=== PATIENT | female | born 1970 | race American Indian/Alaskan Native ===

== ENCOUNTER 2017-08-28 14:35 | Outpatient (CLI) | payer MEDICAID ==
--- NOTE | 2017-08-28 16:12 | Mammography Report ---
LEFT DIGITAL DIAGNOSTIC MAMMOGRAM: 08/28/17 14:35:00 CLINICAL: For clip placement immediately status post ultrasound biopsy. COMPARISON:Recent [facility] mammogram. FINDINGS: A biopsy clip is now identified at 11 o'clock and correlates with the previously described lesion.A distinct mass is not identified at the clip. IMPRESSION: Concordant clip placement status post ultrasound biopsy. BI-RADS CATEGORY: 4--Suspicious Pathology pending.
--- NOTE | 2017-08-28 16:22 | Ultrasound Report ---
VACUUM ASSISTED ULTRASOUND GUIDED NEEDLE CORE BIOPSY WITH CLIP PLACEMENT LEFT BREAST: 08/28/17 14:35:00 CLINICAL: Mass at 11 o'clock 5 cm from the nipple. COMPARISON :Recent [facility] mammogram FINDINGS: The procedure was explained to the patient and informed consent was obtained. Ultrasound demonstrated the previously described mass at 11 o'clock. The skin was prepped with Betadine and anesthetized with 1% lidocaine. Vacuum-assisted needle core biopsy was performed through a small dermatotomy using ultrasound guidance, 2% lidocaine with epinephrine for deep anesthesia and a 10-gauge Mammotome biopsy probe. Multiple cores were obtained and placed in formalin. A localizer clip was deployed within the mass. Hemostasis was achieved with minimal pressure and a sterile dressing was applied. The patient tolerated the procedure well and there were no apparent complications. A two view mammogram demonstrated concordant clip placement. The patient left the department in good condition and was given instructions for wound care and follow up. IMPRESSION: Uncomplicated vacuum-assisted ultrasound core biopsy and clip placement left breast.
== END 2017-08-28 14:36 | disposition home or self-care (01) ==
LOC: SPVWC 14:35
PROVIDERS: ATTEND Obstetrics & Gynecology Gynecology
DX: D24.2 Benign neoplasm of left breast (principal); R92.0 Mammographic microcalcification found on diagnostic imaging of breast; I10 Essential (primary) hypertension
CPT/HCPCS: 88305

== ENCOUNTER 2019-01-13 07:42 | Day surgery (SDC) | payer MEDICAID, OTHER ==
[2019-01-13] MEDS ORDERED: ECOTRIN PO NR (08:06)
[2019-01-13 08:32] LABS: Basophils # (Auto) 0.1 K/mm3 (0.0-0.1); Basophils % (Auto) 0.9 % (0.0-1.8); Eosinophils # (Auto) 0.1 K/mm3 (0.0-0.4); Eosinophils % (Auto) 1.7 % (0.0-4.3); Hematocrit 39.9 % (30.3-42.9); Hemoglobin 13.3 gm/dl (10.1-14.3); Lymphocytes # (Auto) 3.8 K/mm3 (1.2-5.4); Lymphocytes % (Auto) 44.5 % (13.4-35.0); Mean Corpuscular HGB Conc 33 % (30-34); Mean Corpuscular Volume 89 fl (79-97); Monocytes # (Auto) 0.5 K/mm3 (0.0-0.8); Monocytes % (Auto) 5.5 % (0.0-7.3); Platelet Count 382 K/mm3 (140-440); Red Blood Count 4.51 M/mm3 (3.65-5.03); Red Cell Distribution Width 13.8 % (13.2-15.2)
[2019-01-13 08:44] LABS: INR 0.99 (0.87-1.13)
[2019-01-13] MEDS: NACL 0.9% 500 ML 500 ML IV SCH ×3 (08:51→09:58)
[2019-01-13] MEDS: SUBLIMAZE ONE ×2 (09:19→09:58)
[2019-01-13] MEDS: VERSED ONE ×2 (09:19→09:58)
[2019-01-13] MEDS: XYLOCAINE 2% INFILTRATI ONE ×2 (09:19→10:01)
[2019-01-13] MEDS: CALAN ONE ×2 (09:21→10:02)
[2019-01-13] MEDS: HEPARIN 10,000 UNITS/10 ML ONE ×2 (09:22→10:02)
[2019-01-13] MEDS: NITROGLYCERIN SYRINGE 3 ML ONE ×2 (09:23→10:02)
[2019-01-13] MEDS: HEPARIN/NS 5000 UNIT/500ML(CATH LAB) 1,000 ML IR ONE ×2 (09:23→09:58)
[2019-01-13 09:46] LABS: BUN/Creatinine Ratio 16; Blood Urea Nitrogen 11 mg/dL (7-17); Calcium 9.7 mg/dL (8.4-10.2); Hemolysis Index 10
[2019-01-13 12:06] VITALS: BP 112/65
[2019-01-13] MEDS ORDERED: ULTRAM PO ONE (12:10)
[2019-01-13] MEDS ORDERED: ULTRAM ONE (12:11)
--- NOTE | 2019-01-13 12:30 | Cardiac Catherization Report ---
REFERRING PHYSICIAN: Dr. Galindo Sanchez INDICATION FOR PROCEDURE: The patient is a pleasant 48-year-old -[place] female with multiple risk factors who presents here with a history of chest pain despite medical management, abnormal treadmill stress test, referred for left heart catheterization. Risks, benefits, potential alternatives explained at length prior to obtaining informed consent. PROCEDURE IN DETAIL: The patient was brought to the catheterization lab in a postabsorptive state, prepped and draped in sterile fashion. Nick's test in right hand was normal. A 2 mL of 2% lidocaine used to anesthetize the right wrist. A standard 6-Indonesian hydrophilic sheath used to cannulate the right radial via modified Seldinger technique. All exchanges performed to exchange a J-tip guidewire. JL3.5 catheter used to engage the left main. No dampening or ventricularization. Cineangiography performed in all projections. JR4 catheter was used to cross the aortic valve under fluoroscopic guidance. Left ventriculography performed in the 30 SIMONS and 30 YEMENI projections via hand injections, catheter flushed. Manual pullback performed with continuous pressure monitoring. Catheter used to engage the right coronary. No dampening or ventricularization. Cineangiography performed in all projections. Next, catheter removed from the body of wire, sheath removed. Manual pressure used to achieve hemostasis. Due to recurrent chest pain and hypertension, root aortography was performed in the YEMENI projection with a pigtail catheter and a power injector. Next, catheter removed from the body of wire, sheath removed. Manual pressure used to achieve hemostasis. I directly supervised the administration of moderate sedation from 10:00 a.m. to 10:25 a.m. with fentanyl and Versed. DATA: Aortic pressure is 120/70, LV pressure is 120, LVEDP of 15 mmHg. Left ventriculography reveals normal systolic performance with estimated ejection fraction of 55-60%. No evidence of aortic stenosis. CORONARY ANATOMY: This is a right dominant system. Left main is a moderate sized vessel, no significant disease, trifurcates into left anterior descending and left circumflex and ramus intermedius, no disease in left main. Left circumflex is a moderate size vessel, courses the AV groove. No significant disease. It should be noted that her entire coronary tree is rather tortuous, which may be consistent with hypertensive heart disease. Ramus intermedius, courses the medial aspect of the lateral wall. No significant disease, tortuous. LAD is a moderate sized vessel, courses anterior intergroove, wraps around the apex, no significant disease in the LAD or diagonal system. The right coronary is a moderate sized vessel, courses AV groove, distally bifurcates in the posterior and posterolateral branches. No significant disease. Root aortography reveals normal contour, no evidence of dissection, penetrating aortic ulcer, or aortic insufficiency, normal grade vessel anatomy. CONCLUSIONS: 1. No angiographic evidence of significant epicardial coronary disease in this right dominant system. 2. Normal left ventricular systolic performance, estimated ejection fraction of 55-60%. 3. No evidence of aortic stenosis. 4. Normal LVEDP. 5. Normal root aortography without evidence of dissection, penetrating aortic ulcer, or aortic insufficiency. At this point, continue optimal medical therapy, primary and secondary prevention measures discussed. Follow up with Dr. Sanchez in the office. Standard radial care. Results of procedure explained to the patient and family. All questions and concerns were addressed. The patient is clinically stable. JOB# [id number] SBM/NTS
--- NOTE | 2019-01-13 13:53 | Short Stay Summary ---
Short Stay Documentation Date of service: 01/13/19 - History H&P: obtained from office - Allergies and Medications Current Medications: Allergies acetaminophen [From Percocet] Adverse Reaction (Verified 01/13/19 08:44) Hives oxycodone [From Percocet] Adverse Reaction (Verified 01/13/19 08:44) Hives Home Medications Medication Instructions Recorded Confirmed Last Taken Type AtorvaSTATin [Lipitor] 20 mg PO DAILY 01/13/19 01/13/19 01/12/19 History 20mg Loratadine 10 mg PO DAILY 01/13/19 01/13/19 01/12/19 History 10mg NIFEdipine [Nifedipine ER] 30 mg PO DAILY 01/13/19 01/13/19 01/12/19 History 30mg Omeprazole 40 mg PO DAILY 01/13/19 01/13/19 01/12/19 History 40mg Topiramate [Topamax] 25 mg PO DAILY 01/13/19 01/13/19 01/12/19 History 25mg hydroCHLOROthiazide [HCTZ] 25 mg PO DAILY 01/13/19 01/13/19 01/12/19 History 25mg metFORMIN [Glucophage] 500 mg PO BID 01/13/19 01/13/19 01/11/19 History 500mg - Brief post op/procedure progress note Date of procedure: 01/13/19 Pre-op diagnosis: cp, abnormal stress test Post-op diagnosis: same Procedure: LHC - see dictated cath report Anesthesia: local Estimated blood loss: none Condition: stable - Disposition Condition at discharge: Good Disposition: [id number] TO HOME OR SELFCARE - Discharge Diagnoses (1) Normal coronary arteries Status: Chronic Short Stay Discharge Plan Activity: advance as tolerated Wound: open to air, keep clean and dry, per your surgeon's advice Additional Instructions: NO METFORMIN FOR 48 HOURS, RESUME Saturday01/16/2019 Follow up with: MEENU ABDI MD [Primary Care Provider] - 7 Days Forms: CardCath PCI D/C Instructions
== END 2019-01-13 12:42 | disposition home or self-care (01) ==
LOC: CATHLABREC 07:42
PROVIDERS: ATTEND Internal Medicine
DX: R07.9 Chest pain, unspecified (principal); R94.39 Abnormal result of other cardiovascular function study; E78.00 Pure hypercholesterolemia, unspecified; I10 Essential (primary) hypertension; G47.30 Sleep apnea, unspecified; K21.9 Gastro-esophageal reflux disease without esophagitis; M79.7 Fibromyalgia; F32.9 Major depressive disorder, single episode, unspecified; Z90.49 Acquired absence of other specified parts of digestive tract; Z90.710 Acquired absence of both cervix and uterus; Z98.51 Tubal ligation status; Z87.440 Personal history of urinary (tract) infections; Z98.890 Other specified postprocedural states; Z79.899 Other long term (current) drug therapy; Z79.84 Long term (current) use of oral hypoglycemic drugs; Z87.891 Personal history of nicotine dependence; Z88.8 Allergy status to other drugs, medicaments and biological substances
CPT/HCPCS: 36415; 80048; 85025; 85610; 85730; 93005; 93010; 93458; 93567; 99156; 99157; C1894; J1644; J2250; J3010; J7040; Q9967